=== PATIENT | female | born 1960 | race Caucasian/White ===

== ENCOUNTER 2016-05-31 10:46 | Emergency (ER) | payer OTHER ==
[~2016-05-31] VITALS: Ht 157.5 cm; Wt 70.3 kg
[~2016-05-31 10:46] MED LIST: AUGMENTIN 875-1 EACH PO; IBUPROFEN800 M1 PO; LISINOPRIL20 M1 PO; OMEGA-31000 M1 PO; PAXIL CR12.5 MG PO; PERCOCET 5-3251 EACH PO; PREMARIN0.625 M1 PO
[2016-05-31 10:49] VITALS: BP 165/86
--- NOTE | 2016-05-31 11:06 | ED GENERAL ADULT ---
History of Present Illness General Chief Complaint: Shoulder Injury Stated Complaint: shoulder injury Source: patient Exam Limitations: no limitations Vital Signs & Intake/Output Vital Signs & Intake/Output Vital Signs Date Time Temp Pulse Resp B/P Pulse O2 O2 Flow FiO2 Ox Delivery Rate 05/31 1103 97 05/31 1049 97.2 60 18 165/86 99 Room Air ED Intake and Output 06/01 0000 05/31 1200 Intake Total 0 Output Total Balance 0 Intake, Oral 0 Patient 155 lb Weight Allergies Coded Allergies: onion (ABD PAIN 01/06/16) pepper (ABD PAIN 01/06/16) Reconcile Medications Cyclobenzaprine HCl 10 MG TABLET 1 TAB PO TID PRN MUSCLE RELAXANT MAY CAUSE DROWSINESS Estrogenic Subst Conj (Premarin) 0.625 MG TABLET 1 TAB PO QPM HRT (Reported) Lisinopril 20 MG TABLET 1 TAB PO QPM HEART (Reported) Methylprednisolone. (Medrol) 4 MG TAB.DS.PK 1 DP PO AD INFLAMMATION Paroxetine HCl (Paxil Cr) 12.5 MG TAB.ER.24H 1 TAB PO QPM MENTAL HEALTH ( Reported) Triage Note: 56 Y/O FEMALE C/O R SIDED NECK PAIN RADIATING DOWN R SHOULDER AND R ARM; ONSET TUESDAY AND CONSTANT SINCE. 800MG IBUPROPHEN AND ALEVE WITH NO RELIEF, LAST DOSE 0800 Triage Nurses Notes Reviewed? yes HPI: Patient is a 56 year old female presents complaining of right shoulder pain. Patient has felt pain since awaking Tuesday morning, patient felt the pain begin as she was getting out of bed Tuesday morning. Pain is a sharp pain that radiates to the right side of the neck and into the right forearm. Pain is 10/ 10, worsens with movement and palpation. Patient has been taking Ibuprofen and naproxen with no improvement. Patient reports intermittent in paresthesias in her right forearm. Patient is right-hand dominant. Patient has full range of motion of her right upper extremity, reports pain significantly worsens with active range of motion at the shoulder. Patient denies fall, numbness. (CARLOS MCFARLAND,JACQUELINE) Past History Travel History Traveled to [place] past 21 day No Medical History Any Pertinent Medical History? 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 No (JACQUELINE GOLDMAN) Review of Systems Review of Systems Constitutional: Denies: chills, fever. EENTM: Reports: no symptoms. Respiratory: Reports: no symptoms. Cardiovascular: Reports: no symptoms. GI: Reports: no symptoms. Musculoskeletal: Reports: see HPI. Skin: Reports: no symptoms. Neurological/Psychological: Reports: paresthesia (right forearm). Denies: numbness. Hematologic/Endocrine: Reports: no symptoms. Immunologic/Allergic: Reports: no symptoms. (JACQUELINE GOLDMAN) Physical Exam Physical Exam General Appearance: well developed/nourished, alert, awake Head: atraumatic, normal appearance Eyes: Bilateral: normal appearance. Ears, Nose, Throat: hearing grossly normal Neck: normal inspection, supple, full range of motion, no midline tenderness, mild right paraspinal tenderness Respiratory: normal breath sounds, chest non-tender, no respiratory distress, lungs clear Cardiovascular: regular rate/rhythm Peripheral Pulses: 2+ radial (R) Back: normal inspection, normal range of motion Extremities: tenderness right superior shoulder and in the area of the right trapezius. Full active and passive range of motion of the right upper extremity. Pain increases with full abduction and flexion at the right shoulder. Neurologic/Psych: no motor/sensory deficits, awake, alert, oriented x 3, normal gait, normal mood/affect Skin: intact, normal color, warm/dry Core Measures ACS in differential dx? No CVA/TIA Diagnosis: No Severe Sepsis Present: No Septic Shock Present: No (JACQUELINE GOLDMAN) Progress Differential Diagnoses I considered the following diagnoses in my evaluation of the patient: shoulder strain/sprain, fracture, dislocation, rotator cuff tear, nerve impingement. Plan of Care: Orders Procedure Date/time Status Durable Medical Equipment 05/31 1116 Active No neurovascular abnormalities on exam. No significant trauma. Labs and imaging deferred. Patient is appointment with her primary care doctor on Tuesday. Appears stable for conservative treatment and outpatient follow up. (JACQUELINE GOLDMAN) Initial ED EKG: none (JACQUELINE GOLDMAN) Departure Departure Time of Disposition: 1118 Disposition: HOME OR SELF CARE Condition: Stable Clinical Impression Primary Impression: Right shoulder strain Qualifiers: Encounter type: initial encounter Qualified Code: S46.911A - Strain of unspecified muscle, fascia and tendon at shoulder and upper arm level, right arm, initial encounter Referrals: KAITLIN HAMMONDS MD (PCP/Family) Additional Instructions: Follow-up with your primary doctor on Tuesday as previously scheduled. Rest, apply heat to the affected area for 20 minutes 4-5 times a day, and wear shoulder sling for support. 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 Return to the emergency department if numbness, he developed a rash, developed fevers, or worsening of symptoms. Departure Forms: Customer Survey General Discharge Information Prescriptions: Current Visit Scripts Methylprednisolone. (Medrol) 1 DP PO AD #1 DP Cyclobenzaprine HCl 1 TAB PO TID PRN MUSCLE RELAXANT #20 TAB MAY CAUSE DROWSINESS (JACQUELIEN GOLDMAN) PA/HY[employer]OELECT[employer]IC PLANT ELECTRICIAN Co-Sign Statement Statement: ED Attending supervision documentation- [] I saw and evaluated the patient. I have also reviewed all the pertinent lab results and diagnostic results. I agree with the findings and the plan of care as documented in the PA's/HY[employer]OELECT[employer]IC PLANT ELECTRICIAN's documentation. [X] I have reviewed the ED Record and agree with the PA's/HYDROELECT[employer]IC PLANT ELECTRICIAN's documentation. [] Additions or exceptions (if any) to the PAs/HY[employer]OELECT[employer]IC PLANT ELECTRICIAN's note and plan are summarized below: [] (DANAY TEE,TAMARA) Critical Care Note Critical Care Note Critical Care Time: non-applicable (JACQUELINE GOLDMAN)
[2016-05-31] MEDS ORDERED: CYCLOBENZAPRINE10 M1 PO (11:20)
[2016-05-31] MEDS ORDERED: MEDROL4 M2 PO (11:20)
== END 2016-05-31 11:30 ==
LOC: ERH 10:46
DX: S46.911A Strain of unspecified muscle, fascia and tendon at shoulder and upper arm level, right arm, initial encounter (principal)